=== PATIENT | male | born 1965 | race Caucasian/White ===

== ENCOUNTER → 2020-01-14 | Outpatient (CLI) | payer SELFPAY ==
--- NOTE | 2020-01-14 12:23 | KCIC ---
EXAM: CHEST PA LATERAL INDICATION: Reason: Fatigue, cough, chest pain, smoker of 30 yrs. / Spl. Instructions: Sternal chest pain radiates to Lt shoulder and down Lt arm. / History: . TECHNIQUE: PA and lateral views COMPARISON: None FINDINGS: The heart size is normal. The great vessels appear unremarkable. Mediastinum is mildly widened with asymmetric convex fullness to the right paratracheal mediastinum that could represent adenopathy or mass. Lungs are hyperinflated in a pattern suggesting underlying COPD. There is blunting of the posterior costophrenic angle most conspicuously on the right that is suggestive of a small right pleural effusion. No pneumothorax. Bones are osteopenic but no acute fracture or aggressive osseous lesions are identified. There is rightward convexity scoliosis in the midthoracic spine. IMPRESSION: Small right pleural effusion and fullness of the mediastinum questioning a possible mass or adenopathy. Recommend CT chest with IV contrast in further evaluation. Electronically signed by: Sydnee Luis MD (01/14/2020 12:20 PM) [id number]
== END ==
LOC: KCIC 11:38
PROVIDERS: ATTEND Family Medicine
DX: J90 Pleural effusion, not elsewhere classified (principal); R53.83 Other fatigue; R63.4 Abnormal weight loss; M54.2 Cervicalgia; R05 Cough; R07.9 Chest pain, unspecified; R45.1 Restlessness and agitation
CPT/HCPCS: 71046